=== PATIENT | male | born 1955 | race Caucasian/White ===

== ENCOUNTER 2018-05-28 08:56 | Day surgery (SDC) | payer OTHER ==
[2018-05-28] MEDS ORDERED: PROPOFOL 60 ML (11:11)
[2018-05-28] MEDS ORDERED: LIDOCAINE 2% (SDV) 5 ML INJ (11:11)
== END 2018-05-28 12:46 | disposition home or self-care (01) ==
LOC: GIL 08:56
DX: Z12.11 Encounter for screening for malignant neoplasm of colon (principal); D12.5 Benign neoplasm of sigmoid colon
CPT/HCPCS: 45380; 88305